=== PATIENT | female | born 1990 | race Caucasian/White ===

== ENCOUNTER 2016-05-28 14:32 | Emergency (ER) | payer SELFPAY ==
[~2016-05-28] VITALS: Ht 160 cm; Wt 43.2 kg
[~2016-05-28 14:32] MED LIST: SULF1TAB47 PO
[2016-05-28 14:34] VITALS: BP 130/79; PULSE 96; RESP 20; TEMP 98.6; O2SAT 99
--- NOTE | 2016-05-28 14:51 | PD ---
Physical Exam Date Seen by Provider: May 28, 2016 Time Seen by Provider: 14:46 Narrative 26 y/o female presents with 2 days epigastric pain. Pain has been intermittent , but now more constatnt and reported to be 5/10. patient denies Heartburn, Nausea or vomitting. Patient reports she does do alot of heavy lifting at her job, but denies specific injury. Pain worse with eating last night. Denies changes in Bowels. Denies Urinary symptoms or . Has not tried Antacids. V/S Stable. Waiting for Med Bed. Data Data Last Documented VS Vital Signs Date Time Temp Pulse Resp B/P Pulse Ox O2 Delivery O2 Flow Rate FiO2 05/28/16 14:34 98.6 96 20 130/79 99 Room Air [facility] Medical Record Reviewed: Yes Supervised Visit with LEONEL: Yes Condition: Stable Yossi Haines May 28, 2016 14:51
[2016-05-28] MEDS ORDERED: SODIUM CHLOR 0.9% 1000 ML INJ 1,000 ML IV SCH (15:23)
[2016-05-28] MEDS ORDERED: KETOROLAC TROMETHAMINE 30 MG/ML (IVP) VIAL IVP ONE (15:30)
[2016-05-28] MEDS ORDERED: FAMOTIDINE 20 MG/2 ML VIAL IV PUSH ONE (15:30)
[2016-05-28 15:52] LABS: AUTOMATED NEUTROPHIL # 7.3 TH/MM3 (1.8-7.7); BASOPHIL # 0.1 TH/MM3 (0-0.2); BASOPHIL % 0.8 % (0.0-2.0); EOSINOPHIL % 0.5 % (0.0-4.0); HEMATOCRIT 42.5 % (35.0-46.0); HEMO FLAGS DIFF FINAL; LYMPH % 16.3 % (9.0-44.0); LYMPHOCYTE # 1.6 TH/MM3 (1.0-4.8); MEAN CELL VOLUME 92.1 FL (80.0-100.0); MEAN CORPUSCULAR HGB CONC 34.7 % (32.0-36.0); MONO % 5.3 % (0.0-8.0); NEUT % 77.1 % (16.0-70.0); PLATELET COUNT 128 TH/MM3 (150-450); RED BLOOD COUNT 4.62 MIL/MM3 (4.00-5.30); RED CELL DISTRIBUTION WIDTH 14.6 % (11.6-17.2); WHITE BLOOD COUNT 9.5 TH/MM3 (4.0-11.0)
[2016-05-28 16:15] LABS: ALT (GPT) 32 U/L (10-53); ANION GAP 12 MEQ/L (5-15); AST (GOT) 36 U/L (15-37); BICARBONATE 25.4 MEQ/L (21.0-32.0); BLOOD UREA NITROGEN 24 MG/DL (7-18); CHLORIDE 101 MEQ/L (98-107); GLOMERULAR FILTRATION RATE 61 ML/MIN (>89); POTASSIUM 3.9 MEQ/L (3.5-5.1); SODIUM (NA) 138 MEQ/L (136-145)
[2016-05-28 16:17] LABS: ALKALINE PHOSPHATASE 65 U/L (45-117); TOTAL BILIRUBIN ADULT 1.2 MG/DL (0.2-1.0)
--- NOTE | 2016-05-28 17:05 | PD ---
HPI Chief Complaint: Abdominal Pain Time Seen by Provider: 17:01 Travel History International Travel<30 days: No Contact w/Intl Traveler<30days: No Traveled to known affect area: No History of Present Illness HPI 26-year-old female that presents to the ED for evaluation of epigastric abdominal pain. Per patient she's had this pain for 2 days now. Per patient's constant 5 out of 10 and gets worse with movement. Also with deep breaths. She states that the pain is 5 out of 10. Does not radiate. States in the epigastric area. Per patient she feels somewhat short of breath because whenever she exerts herself chief feels that she cannot take a deep breath secondary to the pain. She denies any abdominal surgeries. She denies any trauma but she does tell me that she's been doing a lot of heavy lifting at work which started about 2-3 days ago and she was carrying heavy dog food bags. She is not sure if this is related. She denies any bowel movement or urinary issues. Pain does not get better or worse when she eats. She has an allergy to amoxicillin. Denies . No vaginal bleeding or discharge. No fevers chills or sweats. No nausea or vomiting. PFSH Past Medical History Medical History: Denies Significant Hx Immunizations Current: Yes ?: Not LMP: 05/21/2016 Past Surgical History Surgical History: No Previous Surgery Social History Alcohol Use: No Tobacco Use: No Substance Use: No Allergies-Medications (Allergen,Severity, Reaction): Coded Allergies: Amoxicillin (Verified Allergy, Unknown, 05/28/16) Reported Meds & Prescriptions Reported Meds & Active Scripts Active Zantac (Ranitidine HCl) 150 Mg Tab 150 Mg PO BID Protonix (Pantoprazole Sodium) 40 Mg Tab 40 Mg PO DAILY Review of Systems Except as stated in HPI: all other systems reviewed are Neg Physical Exam Narrative GENERAL: SKIN: Warm and dry. HEAD: Atraumatic. Normocephalic. EYES: Pupils equal and round. No scleral icterus. No injection or drainage. ENT: No nasal bleeding or discharge. Mucous membranes pink and moist. Tongue is midline. No uvula deviation. NECK: Trachea midline. No JVD. CARDIOVASCULAR: Regular rate and rhythm. No murmurs, S3, S4. RESPIRATORY: No accessory muscle use. Clear to auscultation. Breath sounds equal bilaterally. GASTROINTESTINAL: Abdomen soft, tender to palpation on the epigastric area with touch, also noted with movement, nondistended. Hepatic and splenic margins not palpable. MUSCULOSKELETAL: Extremities without clubbing, cyanosis, or edema. No obvious deformities. Full range of motion of the upper and lower extremities bilaterally. 2+ pulses bilaterally. NEUROLOGICAL: Awake and alert. No obvious cranial nerve deficits. Motor grossly within normal limits. Five out of 5 muscle strength in the arms and legs. Normal speech. PSYCHIATRIC: Appropriate mood and affect; insight and judgment normal. Data Data Last Documented VS Vital Signs Date Time Temp Pulse Resp B/P Pulse Ox O2 Delivery O2 Flow Rate FiO2 05/28/16 17:30 16 05/28/16 14:34 98.6 96 130/79 99 Room Air Orders Complete Blood Count With Diff (05/28/16 15:23) Comprehensive Metabolic Panel (05/28/16 15:23) Lipase (05/28/16 15:23) Urinalysis - C+S If Indicated (05/28/16 15:23) Iv Access Insert/Monitor (05/28/16 15:23) Sodium Chlor 0.9% 1000 Ml Inj (Ns 1000 M (05/28/16 15:23) Famotidine Inj (Pepcid Inj) (05/28/16 15:30) Ketorolac Inj (Toradol Inj) (05/28/16 15:30) Ed Urine Pregnancytest Poc (05/28/16 15:23) Ct Abd/Pel W Iv Contrast(Rout) (05/28/16 16:08) Cath For Specimen (05/28/16 17:45) Iohexol 350 Inj (Omnipaque 350 Inj) (05/28/16 18:10) Labs Laboratory Tests Test 05/28/16 15:30 White Blood Count 9.5 TH/MM3 Red Blood Count 4.62 MIL/MM3 Hemoglobin 14.8 GM/DL Hematocrit 42.5 % Mean Corpuscular Volume 92.1 FL Mean Corpuscular Hemoglobin 32.0 PG Mean Corpuscular Hemoglobin 34.7 % Concent Red Cell Distribution Width 14.6 % Platelet Count 128 TH/MM3 Mean Platelet Volume 8.8 FL Neutrophils (%) (Auto) 77.1 % Lymphocytes (%) (Auto) 16.3 % Monocytes (%) (Auto) 5.3 % Eosinophils (%) (Auto) 0.5 % Basophils (%) (Auto) 0.8 % Neutrophils # (Auto) 7.3 TH/MM3 Lymphocytes # (Auto) 1.6 TH/MM3 Monocytes # (Auto) 0.5 TH/MM3 Eosinophils # (Auto) 0.0 TH/MM3 Basophils # (Auto) 0.1 TH/MM3 CBC Comment DIFF FINAL Differential Comment Sodium Level 138 MEQ/L Potassium Level 3.9 MEQ/L Chloride Level 101 MEQ/L Carbon Dioxide Level 25.4 MEQ/L Anion Gap 12 MEQ/L Blood Urea Nitrogen 24 MG/DL Creatinine 1.10 MG/DL Estimat Glomerular Filtration 61 ML/MIN Rate Random Glucose 94 MG/DL Calcium Level 9.2 MG/DL Total Bilirubin 1.2 MG/DL Aspartate Amino Transf 36 U/L (AST/SGOT) Alanine Aminotransferase 32 U/L (ALT/SGPT) Alkaline Phosphatase 65 U/L Total Protein 6.9 GM/DL Albumin 3.9 GM/DL Lipase 120 U/L MDM Medical Decision Making Medical Screen Exam Complete: Yes Emergency Medical Condition: Yes Medical Record Reviewed: Yes Interpretation(s) CBC & BMP Diagram 05/28/16 15:30 LFTs and Lipase WNL Last Impressions Abdomen/Pelvis CT 05/28/16 1608 Signed Impressions: Service Date/Time: Saturday, May 28, 2016 17:56 - CONCLUSION: 1. Abnormal appearance to the mid body and antrum of the stomach with diffuse concentric wall thickening. The thickened wall is hypodense without no significant enhancement. 2. Free fluid in the pelvis with symmetrically prominent adnexa suggesting multiple bilateral ovarian cysts. Ishmael Irvin MD Differential Diagnosis Muscle scale pain versus epigastric pain versus peptic ulcer disease versus pancreatitis versus liver disease versus normal exam Narrative Course 26-year-old female that presents to the ED for evaluation of epigastric pain. Patient was properly examined and was found to have signs and symptoms of unclear etiology. This time pain appears to be more related to muscle skeletal pain. Recommend labs and imaging. Patient was given pain medication. Labs and imaging showed what appears to be taken stomach but otherwise unremarkable. I discussed the case with my attending who recommends treatment for gastritis and follow with GI. Patient was told results and agrees with plan. Patient did felt improved after pain medication and Pepcid. Patient will be sent home with prescription for Zantac and Protonix. Patient was told to follow with GI doctor. Drink plenty of fluids. Given note for work. See ED if worsening symptoms. Diagnosis Primary Impression: Gastritis Qualified Code: K29.00 - Acute gastritis without hemorrhage, unspecified gastritis type Patient Instructions: Narcotic given in the ED, General Instructions Departure Forms: Tests/Procedures, Work Release Enter return to work date: May 31, 2016 Additional Instructions: Take medications as prescribed. Follow-up with PCP. See ED for any worsening symptoms. Apply ice or heat as needed for pain Med/Other Pt SpecificInfo: Prescription(s) given Scripts Ranitidine (Zantac)150 Mg Kve351 Mg PO BID #20 TAB Ref 0 Prov:Dominick Galdamez MD 05/28/16 Pantoprazole (Protonix)40 Mg Tab40 Mg PO DAILY #30 TAB Ref 0 Prov:Dominick Galdamez MD 05/28/16 Disposition: 01 DISCHARGE HOME Condition: Stable Leland Ramos May 28, 2016 17:05
[2016-05-28 17:30] VITALS: RESP 16
[2016-05-28] MEDS ORDERED: IOHEXOL 350 MG/ML 10 ML VIAL (for RAD DIAG) IV ONE (18:10)
[2016-05-28] MEDS ORDERED: DICL75TA PO (18:24)
[2016-05-28] MEDS ORDERED: TRAM50TA PO (18:24)
--- NOTE | 2016-05-28 18:32 | RADRPT ---
EXAM DATE/TIME: 05/28/2016 17:56 [facility] COMPARISON: No previous studies available for comparison. INDICATIONS : Abdomen pain for three days. IV CONTRAST: 82 cc Omnipaque 350 (iohexol) IV ORAL CONTRAST: A minimal amount of prescribed oral contrast ingested. RADIATION DOSE: 5.1 CTDIvol (mGy) MEDICAL HISTORY : None SURGICAL HISTORY : None. ENCOUNTER: Initial ACUITY: 3 days PAIN SCALE: 5/10 LOCATION: Bilateral abdomen. TECHNIQUE: Volumetric scanning of the abdomen and pelvis was performed. Using automated exposure control and ad justment of the mA and/or kV according to patient size, radiation dose was kept as low as reasonably achievable to obtain optimal diagnostic quality images. FINDINGS: LOWER LUNGS: The visualized lower lungs are clear. LIVER: Homogeneous density without lesion. There is no dilation of the biliary tree. No calcified gallston es. SPLEEN: Normal size without lesion. PANCREAS: Within normal limits. KIDNEYS: Normal in size and shape. There is no mass, stone or hydronephrosis. ADRENAL GLANDS: Within normal limits. VASCULAR: There is no aortic aneurysm. BOWEL/MESENTERY: The stomach has an abnormal appearance with concentric thickening of the wall of the mid body and ant rum measuring up to 1.4 cm in thickness. There is also loss of the rugal folds in this thickened are a. Small bowel loops and loops of colon are normal in appearance. ABDOMINAL WALL: Within normal limits. RETROPERITONEUM: There is no lymphadenopathy. BLADDER: No wall thickening or mass. REPRODUCTIVE: The uterus is anteverted. Adnexal regions are symmetrically prominent with multiple small hypodensit ies measuring up to 4.5 cm, suggesting multiple bilateral ovarian cysts. There is a mild amount of f ree fluid in the pelvis measuring up to 1.2 cm in thickness. INGUINAL: There is no lymphadenopathy or hernia. MUSCULOSKELETAL: Within normal limits for patient age. CONCLUSION: 1. Abnormal appearance to the mid body and antrum of the stomach with diffuse concentric wall thicken ing. The thickened wall is hypodense without no significant enhancement. 2. Free fluid in the pelvis with symmetrically prominent adnexa suggesting multiple bilateral ovarian cysts. Ishmael Irvin MD on May 28, 2016 at 18:22 Board Certified Radiologist. This report was verified electronically.
[2016-05-28] MEDS ORDERED: ZANT150T2 PO (18:43)
[2016-05-28] MEDS ORDERED: PROT40TA PO (18:43)
[2016-05-28 19:16] LABS: BLOOD, URINE NEG (NEG); COMMENT (UR) CULT NOT INDICATED; CULTURE IF INDICATED CULT NOT INDICATED; GLUCOSE,URINE NEG (NEG); KETONE, URINE NEG (NEG); MUCUS URINE FEW /lpf (OCC); NITRITE,URINE NEG (NEG); PH, URINE 6.5 (5.0-8.5); SQUAMOUS EPITHELIAL CELL URINE 1 /hpf (0-5); URINE COLOR LIGHT-YELLOW (YELLW/STRAW)
== END 2016-05-28 19:16 | disposition home or self-care (01) ==
LOC: NEPD 14:32
DX: K29.00 Acute gastritis without bleeding (principal); R06.02 Shortness of breath
CPT/HCPCS: 74177; 80053; 81001; 83690; 84703; 85025; 96361; 96374; 96375; 99284; J1885; J7030; Q9967